=== PATIENT | male | born 1985 | race Caucasian/White ===

== ENCOUNTER 2020-06-01 17:01 | Emergency (ER) | payer OTHER, SELFPAY ==
[2020-06-01 17:10] VITALS: BP 150/110; PULSE 73; RESP 16; TEMP 36.8; O2SAT 96; BMI 30.9
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
[2020-06-01] MEDS: tetanus-diphtheria tox (adult) 0.5 mL SDV IM (17:52)
[2020-06-01 18:27] VITALS: BP 124/74; PULSE 53; RESP 16; O2SAT 96
== END 2020-06-01 18:27 | disposition home or self-care (01) ==
PROVIDERS: Emergency Provider Physician Assistant
DX: S81.812A Laceration without foreign body, left lower leg, initial encounter (principal); S89.91XA Unspecified injury of right lower leg, initial encounter; V86.59XA Driver of other special all-terrain or other off-road motor vehicle injured in nontraffic accident, initial encounter; Z23 Encounter for immunization
CPT/HCPCS: 12001; 12345; 73562; 73590; 90714; 96372; 99281; 99282

== ENCOUNTER 2023-02-18 19:37 | Emergency (ER) | payer BC, MEDICAID, SELFPAY ==
[2023-02-18 19:38] VITALS: BP 180/104; PULSE 104; RESP 16; TEMP 36.6; O2SAT 95; BMI 29.2
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
[2023-02-18] MEDS: morphine 4 mg/mL SDV 1 mL IVP (19:55)
[2023-02-18] MEDS: ondansetron 2 mg/ML SDV 2 mL 4 MG IVP (19:56)
[2023-02-18 20:14] VITALS: BP 142/90; PULSE 107; RESP 18; O2SAT 93
[2023-02-18 20:54] VITALS: BP 127/89; PULSE 98; RESP 18; O2SAT 94
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
[2023-02-18] MEDS: HYDROcodone-acetaminophen 5-325 mg Tablet 2 TAB PO (21:00)
[2023-02-18 21:47] VITALS: RESP 16
[2023-02-18] MEDS: ondansetron 2 mg/ML SDV 2 mL 4 MG IM (21:47)
[2023-02-18] MEDS: morphine 4 mg/mL SDV 1 mL IM (21:47)
--- NOTE | 2023-02-19 08:19 | DCPLANNER ---
Addendum entered by Tanna Etienne 02/24/23 10:11: Patient had a follow up appointment scheduled with ortho - patient did attend appointment Addendum entered by Tanna Etienne 02/19/23 10:15: Patient has a follow up appointment scheduled for Thursday, February 23, 2023 at 2:20 with Aravind Briggs at ortho. Original Note: systems integration manager had message to schedule a follow up appointment for patient with ortho. systems integration manager sent patients information to the front office staff at ortho. Patients information will be printed and reviewed. Clinic will call patient with appointment information.
--- NOTE | 2023-02-19 09:14 | DCPLANNER ---
Addendum entered by Tanna Etienne 02/19/23 09:18: Patients called back, declining insurance case manager help in getting established with a provider. Original Note: application release manager called patient due to no primary care physician - no answer at this time.
== END 2023-02-18 22:20 | disposition home or self-care (01) ==
PROVIDERS: Emergency Provider Emergency Medicine
DX: S32.010A Wedge compression fracture of first lumbar vertebra, initial encounter for closed fracture (principal); V18.0XXA Pedal cycle driver injured in noncollision transport accident in nontraffic accident, initial encounter
CPT/HCPCS: 72128; 72131; 73630; 96372; 96374; 96375; 99285; J2270; J2405

== ENCOUNTER → 2023-02-23 14:08 | Outpatient (BNVA) | payer BC, MEDICAID, SELFPAY | PROVIDERS: Referring Provider Emergency Medicine; Visit Provider Physician Assistant | DX: S32.010A Wedge compression fracture of first lumbar vertebra, initial encounter for closed fracture (principal); V86.56XA Driver of dirt bike or motor/cross bike injured in nontraffic accident, initial encounter; Y92.410 Unspecified street and highway as the place of occurrence of the external cause | CPT/HCPCS: 72100 ==

== ENCOUNTER 2023-02-23 15:04 | Outpatient (CLI) | payer BC, MEDICAID, SELFPAY | END 2023-02-23 15:05 | disposition home or self-care (01) | LOC: SPT 15:05 | PROVIDERS: Visit Provider Physician Assistant | DX: Z46.89 Encounter for fitting and adjustment of other specified devices (principal); S32.000D Wedge compression fracture of unspecified lumbar vertebra, subsequent encounter for fracture with routine healing; X58.XXXD Exposure to other specified factors, subsequent encounter | CPT/HCPCS: 97760; L0456 ==

== ENCOUNTER 2023-03-10 06:42 | Outpatient (CLI) | payer BC, MEDICAID, SELFPAY ==
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
== END 2023-03-10 06:43 | disposition home or self-care (01) ==
PROVIDERS: Visit Provider Physician Assistant
DX: S22.080D Wedge compression fracture of T11-T12 vertebra, subsequent encounter for fracture with routine healing (principal); X58.XXXA Exposure to other specified factors, initial encounter; M51.36 Other intervertebral disc degeneration, lumbar region
CPT/HCPCS: 72148

== ENCOUNTER 2023-03-12 11:50 | Outpatient (CLI) | payer BC, MEDICAID, SELFPAY ==
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
== END 2023-03-12 11:51 | disposition home or self-care (01) ==
LOC: RAD 11:51
PROVIDERS: Visit Provider Physician Assistant
DX: S32.018A Other fracture of first lumbar vertebra, initial encounter for closed fracture (principal); M51.24 Other intervertebral disc displacement, thoracic region; X58.XXXA Exposure to other specified factors, initial encounter
CPT/HCPCS: 72146

== ENCOUNTER → 2023-04-20 15:15 | Outpatient (BNVA) | payer BC, MEDICAID, SELFPAY | PROVIDERS: Visit Provider Orthopaedic Surgery | DX: S32.010D Wedge compression fracture of first lumbar vertebra, subsequent encounter for fracture with routine healing (principal); S22.080D Wedge compression fracture of T11-T12 vertebra, subsequent encounter for fracture with routine healing; V29.99XD Rider (driver) (passenger) of other motorcycle injured in unspecified traffic accident, subsequent encounter | CPT/HCPCS: 72100 ==

== ENCOUNTER → 2023-05-20 14:53 | Outpatient (BNVA) | payer BC, MEDICAID, SELFPAY | PROVIDERS: Visit Provider Orthopaedic Surgery | DX: S22.080D Wedge compression fracture of T11-T12 vertebra, subsequent encounter for fracture with routine healing; S32.010D Wedge compression fracture of first lumbar vertebra, subsequent encounter for fracture with routine healing; V86.56XD Driver of dirt bike or motor/cross bike injured in nontraffic accident, subsequent encounter | CPT/HCPCS: 72072 ==